=== PATIENT | male | born 1960 | race Caucasian/White ===

== ENCOUNTER 2018-05-02 11:19 | Emergency (ER) | payer MEDICAID ==
[~2018-05-02] VITALS: Ht 175.3 cm; Wt 90.7 kg
--- NOTE | 2018-05-02 11:19 | NUR ---
PT [facility] BLS TO ER BED 08
[2018-05-02 11:22] VITALS: BP 136/82
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
--- NOTE | 2018-05-02 12:29 | NUR ---
PATIENT STATES HE WANTS PAIN MEDICATION. DR DE LEON INFORMED. WILL AWAIT ORDERS.
--- NOTE | 2018-05-02 12:50 | NUR ---
DR DE LEON AT BEDSIDE.
[2018-05-02] MEDS ORDERED: KETOROLAC 60 MG/2 ML VIAL IM ONE (12:55)
[2018-05-02] MEDS ORDERED: MORPHINE SULFATE 4 MG/ML SYR IM ONE (12:55)
[2018-05-02] MEDS ORDERED: LORazepam 2 MG/ML VIAL IM ONE (12:55)
--- NOTE | 2018-05-02 14:00 | NUR ---
PATIENT SLEEPING IN BED.
[2018-05-02] MEDS ORDERED: DEXAMETHASONE 10 MG/ML VIAL IM ONE (16:50)
--- NOTE | 2018-05-02 17:30 | NUR ---
PATIENT CALLED BOSS FOR A RIDE BACK TO WORK.
[2018-05-02 17:43] VITALS: BP 127/78
--- NOTE | 2018-05-02 17:44 | NUR ---
Patient discharged with v/s stable. Written and verbal after care instructions given and explained. Patient alert, oriented and verbalized understanding of instructions. Ambulatory with steady gait. All questions addressed prior to discharge. ID band removed. Patient advised to follow up with PMD. Rx of TRAMZDOL, ATARAX, VOLTAREN given. Patient educated on indication of medication including possible reaction and side effects. Opportunity to ask questions provided and answered.
== END 2018-05-02 17:44 | disposition home or self-care (01) ==
LOC: MED 11:19
DX: S32.018A Other fracture of first lumbar vertebra, initial encounter for closed fracture (principal); S32.028A Other fracture of second lumbar vertebra, initial encounter for closed fracture; S32.038A Other fracture of third lumbar vertebra, initial encounter for closed fracture; W01.0XXA Fall on same level from slipping, tripping and stumbling without subsequent striking against object, initial encounter; Y93.89 Activity, other specified; Y92.89 Other specified places as the place of occurrence of the external cause; Y99.8 Other external cause status
CPT/HCPCS: 72131; 96372; 99284; J1885; J2060; J2270